=== PATIENT | male | born 1990 | race African-American/Black ===

== ENCOUNTER 2022-03-21 17:13 | Emergency (ER) | payer OTHER ==
[2022-03-21 17:37] VITALS: BP 108/64; PULSE 85; RESP 17; TEMP 98.5
[2022-03-21] MEDS ORDERED: DIPHTH,PERTUSS(ACELL),TET 0.5 ML DISP.SYRIN IM ONE ×2 (17:58)
== END 2022-03-21 18:03 | disposition home or self-care (01) ==
LOC: JER 17:13 → JERFT 17:13
PROC: 3E0234Z Introduction of Serum, Toxoid and Vaccine into Muscle, Percutaneous Approach (ICD-10-PCS; principal; 2022-03-21)
DX: S61.211A Laceration without foreign body of left index finger without damage to nail, initial encounter (principal); W26.8XXA Contact with other sharp object(s), not elsewhere classified, initial encounter
CPT/HCPCS: 90715; 99284-25